=== PATIENT | female | born 1990 | race Caucasian/White ===

== ENCOUNTER 2017-08-03 20:13 | Inpatient (IN) | payer MEDICAID ==
[~2017-08-03] VITALS: Ht 162.6 cm; Wt 93.0 kg
[~2017-08-03 20:13] MED LIST: PREN1TAB79 PO
[2017-08-03 20:48] VITALS: BP 129/70; PULSE 82; RESP 18; Ht 162.6 cm; Wt 93.0 kg
[2017-08-03] MEDS ORDERED: TERBUTALINE 1 MG/ML INJ SC ONE (21:30)
[2017-08-03] MEDS ORDERED: LACTATED RINGER'S 1,000 ML IV ONE (21:30)
[2017-08-03] MEDS: LACTATED RINGER'S 1,000 ML IV* SCH (22:23)
[2017-08-03 22:27] LABS: BASOPHIL # 0.1 10^3/ul (0.0-0.1); BASOPHILS % 0.4 % (0.0-2.0); EOSINOPHILS # 0.1 10^3/ul (0.0-0.5); EOSINOPHILS % 0.5 % (0.0-7.0); HEMATOCRIT 36.7 % (37.0-47.0); HEMOGLOBIN 13.1 g/dl (12.0-16.0); LYMPHOCYTES # 3.8 10^3/ul (0.8-2.9); LYMPHOCYTES % 33.5 % (15.0-51.0); MEAN CORPUSCULAR HEMOGLOBIN 31.3 pg (29.0-33.0); MEAN CORPUSCULAR HGB CONC 35.7 g/dl (32.0-37.0); MEAN CORPUSCULAR VOLUME 87.6 fl (82.0-101.0); MEAN PLATELET VOLUME 12.3 fl (7.4-10.4); MONOCYTE # 0.4 10^3/ul (0.3-0.9); MONOCYTES % 3.8 % (0.0-11.0); NEUTROPHIL # 6.7 10^3/ul (1.6-7.5); NEUTROPHILS % 59.7 % (39.0-77.0); PLATELET COUNT 211 10^3/UL (140-415); RED BLOOD COUNT 4.19 10^6/ul (4.20-5.40); RED CELL DISTRIBUTION WIDTH 13.4 % (11.5-14.5); WHITE BLOOD COUNT 11.2 10^3/ul (4.8-10.8)
[2017-08-03 22:36] LABS: ADD UMIC YES; UR ASCORBIC ACID NEGATIVE (NEGATIVE); UR BACTERIA FEW /HPF (NONE SEEN); UR BILIRUBIN (Dip) NEGATIVE (NEGATIVE); UR BLOOD (Dip) NEGATIVE (NEGATIVE); UR CLARITY CLOUDY (CLEAR); UR COLOR YELLOW (YELLOW); UR GLUCOSE (Dip) 3+ mg/dL (NEGATIVE); UR KETONES (Dip) TRACE mg/dL (NEGATIVE); UR LEUKOCYTE ESTERASE (Dip) 3+ Leu/ul (NEGATIVE); UR MUCUS FEW /HPF (NONE SEEN); UR NITRITE (Dip) NEGATIVE (NEGATIVE); UR RBC 4 /HPF (0-5); UR SPECIFIC GRAVITY (Dip) 1.013 (1.003-1.030); UR SQUAMOUS EPITHELIAL CELL FEW /HPF (FEW); UR TOTAL PROTEIN (Dip) NEGATIVE (NEGATIVE); UR UROBILINOGEN (Dip) NEGATIVE (NEGATIVE)
[2017-08-03] MEDS ORDERED: ACETAMINOPHEN 325 MG TAB PO PRN (23:30)
[2017-08-03] MEDS ORDERED: INSULIN ASPART [NOVOLOG] 3 ML PEN SC ONE (23:30)
[2017-08-03] MEDS ORDERED: CALC600T5 PO (23:47)
[2017-08-03] MEDS ORDERED: MACBID PO (23:47)
[2017-08-03] MEDS ORDERED: FOL8 PO (23:47)
[2017-08-03 23:49] LABS: INR 1.04; PARTIAL THROMBOPLASTIN TIME 22.4 Sec (25.0-35.0); PROTIME 13.6 Sec (12.2-14.2); PT RATIO 1.1
[2017-08-04] MEDS: NITROFURANTOIN (SR) 100 MG CAP PO SCH ×3 (01:14→20:54)
[2017-08-04] MEDS: LACTATED RINGER'S 1,000 ML IV SCH ×3 (01:15→15:00)
--- NOTE | 2017-08-04 02:53 | TRIAGE ---
OB Triage Datetime Report Generated by CPN: 08/04/2017 02:53 Datetime: 08/04/2017 02:00 Labor Evaluation Frequency: X3 Monitor Mode: External Duration (sec)2399: 40-80 Pattern: Normal: <= 5 Contractions in 10 Minutes Heart Rate FHR Baseline Rate: 160 Monitor Mode: External US FHR Baseline Changes: No Baseline Change Variability: Moderate 6-25 bpm Accelerations: 15X15 Datetime: 08/04/2017 01:29 Comments: lost of contact, pt sitting up. Datetime: 08/04/2017 01:00 Maternal Assessment Level of Consciousness: Fully Conscious DTR's/Clonus: No Clonus Headache: Denies Blurred Vision: No Respiratory Effort: Unlabored Breath Sounds, Left: Clear and Equal Breath Sounds, Right: Clear and Equal Nausea/Vomiting: Denies RUQ Epigastric Pain: Denies Facial Edema: None Labor Evaluation Frequency: x 1 Monitor Mode: External Duration (sec)2399: 80 Quality: Mild Pattern: Normal: <= 5 Contractions in 10 Minutes Resting Tone [place]: Relaxed Heart Rate FHR Baseline Rate: 160 Monitor Mode: External US Variability: Moderate 6-25 bpm Accelerations: 15X15 Decelerations: None Category: Category I Pain Assessment Pain Scale: 0 Pain Presence: None/Denies Pain Type: N/A Membrane Status: Intact Datetime: 08/04/2017 00:46 Assessment Type: Admission Assessment Maternal Assessment Level of Consciousness: Fully Conscious DTR's/Clonus: DTRs 2+; No Clonus Headache: Denies Blurred Vision: No Respiratory Effort: Unlabored; Regular Rhythm; Equal Expansion Breath Sounds, Left: Clear and Equal Breath Sounds, Right: Clear and Equal Nausea/Vomiting: Denies RUQ Epigastric Pain: Denies Lower Extremities Edema: None Upper Extremities Edema: None Facial Edema: None Fall Risk Assessment History of Falling: (0) No Secondary Diagnosis: (0) No Ambulatory Aid: (0) Bedrest/Nurse Assist IV Therapy: (20) Yes Gait: (0) Normal/Bedrest/Immobile Mental Status: (0) Oriented to Own Ability Fall Score: 20 Fall Risk Score Definition: No Risk: No action required Comment: Datetime: 08/04/2017 00:25 Stage of : OB Triage Labor Evaluation Frequency: None noted or palpated Monitor Mode: External Resting Tone [place]: Relaxed Heart Rate FHR Baseline Rate: 150 Monitor Mode: External US Variability: Moderate 6-25 bpm Accelerations: 15X15 Decelerations: None Category: Category I Datetime: 08/04/2017 00:00 Stage of : OB Triage Labor Evaluation Frequency: x2 Monitor Mode: External Duration (sec)2399: 50-100 Quality: Mild Pattern: Normal: <= 5 Contractions in 10 Minutes Resting Tone [place]: Relaxed Heart Rate FHR Baseline Rate: 155 Monitor Mode: External US FHR Baseline Changes: No Baseline Change Variability: Moderate 6-25 bpm Accelerations: 15X15 Decelerations: None Category: Category I Datetime: 08/03/2017 23:05 Stage of : OB Triage Datetime: 08/03/2017 23:00 Stage of : OB Triage Labor Evaluation Frequency: x1 Monitor Mode: External Duration (sec)2399: 40 Quality: Mild Pattern: Normal: <= 5 Contractions in 10 Minutes Resting Tone [place]: Relaxed Heart Rate FHR Baseline Rate: 155 Monitor Mode: External US Variability: Moderate 6-25 bpm Accelerations: 15X15 Decelerations: None Category: Category I Datetime: 08/03/2017 22:26 Stage of : OB Triage Vaginal Exam Dilatation (cms): 0.0 Effacement (%): 0 Station: -4 Exam By: SANDOVAL Maradiaga Vaginal Bleeding: None Cervix, Consistency: Moderate Cervix, Position: Posterior Datetime: 08/03/2017 22:00 Stage of : OB Triage Labor Evaluation Frequency: Irregular Monitor Mode: External Duration (sec)2399: 40-80 Quality: Mild Pattern: Normal: <= 5 Contractions in 10 Minutes Resting Tone [place]: Relaxed Heart Rate FHR Baseline Rate: 150 Monitor Mode: External US FHR Baseline Changes: No Baseline Change Variability: Moderate 6-25 bpm Accelerations: 15X15 Decelerations: None Category: Category I Datetime: 08/03/2017 21:00 Stage of : OB Triage Labor Evaluation Frequency: 2-4.5 Monitor Mode: External Duration (sec)2399: 40-80 Quality: Mild Pattern: Normal: <= 5 Contractions in 10 Minutes Resting Tone [place]: Relaxed Heart Rate FHR Baseline Rate: 150 Monitor Mode: External US Variability: Moderate 6-25 bpm Accelerations: 15X15 Decelerations: None Category: Category I Datetime: 08/03/2017 20:56 Stage of : OB Triage Datetime: 08/03/2017 20:46 Time of Arrival: 08/04/2017 01:24 EGA: 34.2 Arrived By: Ambulatory Movement: Present Datetime: 08/03/2017 20:28 Stage of : OB Triage Assessment Type: Triage Maternal Assessment Level of Consciousness: Fully Conscious DTR's/Clonus: DTRs 2+; No Clonus Headache: Denies Blurred Vision: No Respiratory Effort: Unlabored; Regular Rhythm; Equal Expansion Breath Sounds, Left: Clear and Equal Breath Sounds, Right: Clear and Equal Nausea/Vomiting: Denies RUQ Epigastric Pain: Denies Lower Extremities Edema: None Degree: None Upper Extremities Edema: None Degree: None Facial Edema: None Temperature Route: Oral Fall Risk Assessment History of Falling: (0) No Secondary Diagnosis: (0) No Ambulatory Aid: (0) Bedrest/Nurse Assist IV Therapy: (0) No Gait: (0) Normal/Bedrest/Immobile Mental Status: (0) Oriented to Own Ability Fall Score: 0 Fall Risk Score Definition: No Risk: No action required Pain Assessment Pain Scale: 6 Pain Presence: Constant Pain Type: Ache Pain Location: Back Pain Relief Measures: Comfort Measures Datetime: 08/03/2017 20:25 Time of Arrival: 08/03/2017 20:01 Arrived By: Wheelchair Arrived From: Office Chief Complaint: Constant back pain Movement: Present Contractions: Irregular Rupture of Membranes: Denies Vaginal Bleeding: None Vaginal Discharge: Denies Abdominal Trauma: Not Applicable Patient Complaints: Back Pain Additional Patient Complaints: Pt states uc's palpated in clinic _ pt newly diagnosed GDM today. P t states was instructed to change diet. No meds ordered. Time Provider Notified: 08/03/2017 20:56 Provider Notified: Initial Plan: VE, IV hydration, Terbutaline x1
[2017-08-04] MEDS: LACTATED RINGER'S 1,000 ML IV* SCH ×3 (06:13→22:17)
[2017-08-04] MEDS: ACCU-CHEK XX SCH ×4 (08:00→20:03)
[2017-08-04] MEDS: FOLIC ACID 0.4 MG TAB PO SCH (10:08)
[2017-08-04] MEDS: CALCIUM CARBONATE 1.25 GM TAB PO SCH (10:09)
[2017-08-04] MEDS: PRENATAL VITAMIN PO SCH (10:09)
[2017-08-04] MEDS: INSULIN ASPART [NOVOLOG] 3 ML PEN SC SCH ×3 (11:19→20:15)
[2017-08-04] MEDS ORDERED: GLUCAGON 1 MG INJ IM PRN (11:30)
[2017-08-04] MEDS ORDERED: GLUCOSE GEL 15 GRAM TUBE PO PRN ×2 (11:30)
[2017-08-04] MEDS ORDERED: GLUCOSE GEL 15 GRAM TUBE BUCCAL PRN (11:30)
[2017-08-04] MEDS ORDERED: DEXTROSE 50% 50 ML SYRINGE IV PRN ×2 (11:30)
[2017-08-04] MEDS ORDERED: INSULIN ASPART [NOVOLOG] 3 ML PEN SC SCH ×2 (14:00→18:05)
[2017-08-04] MEDS: NIFEdipine 10 MG CAP PO SCH ×2 (15:47→18:18)
[2017-08-04] MEDS ORDERED: NIFEdipine 10 MG CAP PO SCH (18:00)
--- NOTE | 2017-08-04 19:33 | HP ---
Date/Time of Note Date/Time of Note DATE: 08/04/17 TIME: 19:28 OB - History Hx of Present Free Text/Dictation 27-year-old female 2 para 1 at 34+ weeks gestation was admitted because of elevated blood sugars in hospital for sugar control Patient has hemoglobin A1c over 8 in the first visit Had care outside the state Last Menstrual Period: Dec 07, 2016 Estimated Due Date: Sep 13, 2017 : 2 Para: 1 Care: Limited Care Ultrasounds: No ultrasounds Obstetrical Complications: Gestational Diabetes, Other ( contractions) Medical Complications: None Past Family/Social History * Past Medical, Surgical, Family and Obstetric Histories reviewed from chart. OB Admission Exam Vital Signs Vital Signs Vital Signs Date Time Temp Pulse Resp B/P Pulse Ox O2 Delivery O2 Flow Rate FiO2 08/03/17 20:48 98.3 82 18 129/70 Room Air Physical Exam HEENT: WNL Heart: Rhythm Normal Lungs: Clear, Equal Abdomen: WNL Extremities: Normal Reflexes: Normal Cervical Dilatation: None Effacement: 0% Station: -3 Membranes: Intact Heart Rate: 150's Accelerations: Accelerations Present Decelerations: No Decelerations Varibility: Marked Contractions on Admission: < 5 Minutes Apart Date/Time Contractions Began: Denies uterine contractions Frequency of Contractions: Denies uterine contractions Duration: Denies uterine contractions Last 72 hourBlood Glucose Bedside Glucose - 72 Hours Test 08/04/17 03:05 08/04/17 08:12 08/04/17 11:08 08/04/17 15:09 Bedside Glucose 232mg/dL (70-220) H 188mg/dL (70-220) 197mg/dL (70-220) 172mg/dL (70-220) Last 72 hours Lab Results CBC & BMP 08/03/17 21:32 OB Assessment/Plan Reason for admission: labor Other Assessment: 34+ weeks gestation uterine contractions Gestational diabetes [id number] Other plan: Start on magnesium sulfate for treatment of contractions Steroids Insulin is initiated by perinatologist we will adjust the dose in hospital ISIDRO BLAKE MD Aug 04, 2017 19:33
[2017-08-04] MEDS ORDERED: MAGNESIUM SULFATE 4 GM/100 ML 100 ML IVPB ONE (20:00)
[2017-08-04] MEDS ORDERED: BETAMET NA PHOS/AC(6 MG/ML) 5ML INJ IM ONE (20:00)
--- NOTE | 2017-08-04 20:28 | RADRPT ---
PROCEDURE: US OB. CLINICAL INDICATION: Size and dates , diabetes TECHNIQUE: Multiple sonographic images of the pelvis and gravid uterus were obtained. The images were reviewed on a PACS workstation. COMPARISON: No prior studies are available for comparison. FINDINGS: There is a single viable intrauterine gestation. Cardiac activity is present with 154 beats per min telida. There is a vertex presentation. The placenta is anterior. There is no evidence for an abruption or placenta previa. Measurements were made in order to determine age. The results are as follows: BPD =9.0 cm HC =31.8 cm AC =32.2 cm FL =7.1 cm Estimated gestational age of approximately 36 weeks and 1 day based on ultrasound measurements. Clinical age: 34 weeks and 2 days. The estimated date of delivery is 08/31/17, based on ultrasound measurements. The EFW = 2843 g, 90.3%, based on LMP age. RPTAT: AA IMPRESSION: Single viable intrauterine gestation of approximately 36 weeks and 1 day based on ultrasound measur ements. Larger than clinical age by 2 weeks. .Jef Chowdhury MD, MD Date Time Electronically viewed and signed by .Jef Chowdhury MD, on 08/04/2017 20:27 .S/
[2017-08-04] MEDS: MAGNESIUM SULFATE 20 GM/500 ML 500 ML IV SCH (20:59)
[2017-08-04] MEDS ORDERED: INSULIN ISOPHANE (NPH) 10 ML INJ SC SCH (21:00)
[2017-08-05] MEDS: LACTATED RINGER'S 1,000 ML IV* SCH ×3 (05:30→22:24)
[2017-08-05] MEDS: MAGNESIUM SULFATE 20 GM/500 ML 500 ML IV SCH ×2 (06:51→17:16)
[2017-08-05] MEDS ORDERED: INSULIN ASPART [NOVOLOG] 3 ML PEN SC SCH (08:00)
[2017-08-05] MEDS: INSULIN ISOPHANE (NPH) 10 ML INJ SC SCH ×2 (08:22→21:21)
[2017-08-05] MEDS: ACCU-CHEK XX SCH ×4 (08:29→19:52)
[2017-08-05] MEDS: NITROFURANTOIN (SR) 100 MG CAP PO SCH ×2 (08:35→21:17)
[2017-08-05] MEDS: PRENATAL VITAMIN PO SCH (08:35)
[2017-08-05] MEDS: CALCIUM CARBONATE 1.25 GM TAB PO SCH (08:35)
[2017-08-05] MEDS: FOLIC ACID 0.4 MG TAB PO SCH (08:36)
[2017-08-05] MEDS: INSULIN ASPART [NOVOLOG] 3 ML PEN SC SCH ×4 (10:28→20:07)
--- NOTE | 2017-08-05 17:39 | PN ---
Date/Time of Note Date/Time of Note DATE: 08/05/17 TIME: 17:38 OB Subjective Subjective Subjective No more complaint of uterine contractions OB Objective Objective Objective Vital signs are stable in general physical exam is unchanged On electronic monitoring and frequent uterine contractions seen Glucose still elevated Patient under care of perinatologist for sugar control OB Assessment/Plan Reason for admission: labor Other Assessment: Uncontrolled gestational diabetes 34+ weeks gestation Other plan: Continue to monitor blood sugars and adjust insulin dose labor appear under control We will try to DC magnesium sulfate the following day Consider starting patient on p.o. nifedipine next day ISIDRO BLAKE MD Aug 05, 2017 17:39
[2017-08-05] MEDS ORDERED: BETAMET NA PHOS/AC(6 MG/ML) 5ML INJ IM ONE (20:00)
[2017-08-06] MEDS: MAGNESIUM SULFATE 20 GM/500 ML 500 ML IV SCH ×2 (01:41→11:02)
[2017-08-06] MEDS: LACTATED RINGER'S 1,000 ML IV* SCH ×3 (05:30→23:24)
[2017-08-06] MEDS: ACCU-CHEK XX SCH ×4 (07:30→20:05)
[2017-08-06] MEDS: CALCIUM CARBONATE 1.25 GM TAB PO SCH (08:30)
[2017-08-06] MEDS: PRENATAL VITAMIN PO SCH (08:30)
[2017-08-06] MEDS: NITROFURANTOIN (SR) 100 MG CAP PO SCH ×2 (08:30→20:39)
[2017-08-06] MEDS: INSULIN ASPART [NOVOLOG] 3 ML PEN SC SCH ×5 (08:37→20:34)
[2017-08-06] MEDS: INSULIN ISOPHANE (NPH) 10 ML INJ SC SCH ×2 (08:38→20:37)
[2017-08-06] MEDS: FOLIC ACID 0.4 MG TAB PO SCH (08:52)
[2017-08-06] MEDS: NIFEdipine 10 MG CAP PO SCH (20:05)
[2017-08-07] MEDS: NIFEdipine 10 MG CAP PO SCH ×3 (00:19→11:49)
[2017-08-07] MEDS: LACTATED RINGER'S 1,000 ML IV* SCH ×2 (05:30→11:40)
[2017-08-07] MEDS: PRENATAL VITAMIN PO SCH (08:35)
[2017-08-07] MEDS: CALCIUM CARBONATE 1.25 GM TAB PO SCH (08:35)
[2017-08-07] MEDS: FOLIC ACID 0.4 MG TAB PO SCH (08:35)
[2017-08-07] MEDS: NITROFURANTOIN (SR) 100 MG CAP PO SCH (08:35)
[2017-08-07] MEDS: ACCU-CHEK XX SCH ×2 (09:00→11:30)
[2017-08-07] MEDS: INSULIN ISOPHANE (NPH) 10 ML INJ SC SCH (09:23)
[2017-08-07] MEDS: INSULIN ASPART [NOVOLOG] 3 ML PEN SC SCH ×2 (09:25→11:30)
--- NOTE | 2017-08-07 14:11 | PERINOTE ---
Date/Time of Note Date/Time of Note DATE: 08/07/17 TIME: 13:56 Assessment/Recommendations Other Assessments Intrauterine at 34 weeks and 5 days of gestation Gestational diabetes, possibly undiagnosed pre-gestational diabetes, treated with insulin. Blood glucose control is improving, despite an unconventional insulin regimen. however the patient is requiring spot doses of insulin in the afternoon. Recommendations: I have D/Cd the sliding scale insulin and increased morning NPH Would D/C the patient when she knows how to self-inject and to manage her diet. After D/C please refer the patient to perinatology for follow up of gestational diabetes. OB Subjective Free Text/Dictaton Patient is referred for premature uterine contractions and also gestational diabetes out of control. HD# 5 IUP @ 34W5D Complaints/Overnight events Patient reports no further uterine activity Current Medications Current Medications Lactated Ringer's (Lr) 1,000 ml @ 125 mls/hr Q8H IV* Last administered on 11:40; Admin Dose 125 MLS/HR; Start 08/03/17 at 21:30 Diagnostic Test (Pha) (Accu-Chek) 1 ea FBSPP XX Last administered on 11:30; Admin Dose 1 EA; Start 08/04/17 at 06:00 Prenat Multivit/ [place]/Iron/Folic Ac () 1 tab DAILY PO Last administered on 08/07/17 08:35; Admin Dose 1 TAB; Start 08/04/17 at 09:00 Acetaminophen (Tylenol Tab) 650 mg Q4H PRN PO PAIN AND OR ELEVATED TEMP Last administered on 08/04/17 18:17; Admin Dose 650 MG; Start 08/03/17 at 23:30 Folic Acid (Folic Acid) 0.8 mg DAILY PO Last administered on 08/07/17 08:35; Admin Dose 0.8 MG; Start 08/04/17 at 09:00 Calcium Carbonate (Oyster Shell Calcium) 1.25 gm DAILY PO Last administered on 08/07/17 08:35; Admin Dose 1.25 GM; Start 08/04/17 at 09:00 Nitrofurantoin Macrocrystals (Macrobid) 100 mg BID PO Last administered on 08:35; Admin Dose 100 MG; Start 08/03/17 at 23:30 Miscellaneous Information 1 ea NOTE XX ; Start 08/04/17 at 11:30 Glucose (Glutose) 15 gm Q15M PRN PO DECREASED GLUCOSE; Start 08/04/17 at 11:30 Glucose (Glutose) 22.5 gm Q15M PRN PO DECREASED GLUCOSE; Start 08/04/17 at 11: 30 Dextrose (D50w Syringe) 25 ml Q15M PRN IV DECREASED GLUCOSE; Start 08/04/17 at 11:30 Dextrose (D50w Syringe) 50 ml Q15M PRN IV DECREASED GLUCOSE; Start 08/04/17 at 11:30 Glucagon (Glucagen) 1 mg Q15M PRN IM DECREASED GLUCOSE; Start 08/04/17 at 11: 30 Glucose (Glutose) 15 gm Q15M PRN BUCCAL DECREASED GLUCOSE; Start 08/04/17 at 11:30 Insulin Human NPH (Novolin-N) 16 units HS SC Last administered on 08/06/17 20 :37; Admin Dose 16 UNITS; Start 08/05/17 at 21:00 Nifedipine (Procardia) 20 mg Q6 PO Last administered on 08/07/17 11:49; Admin Dose 20 MG; Start 08/06/17 at 20:00 Past Medical History Medical History: no pertinent history Surgical History: no surgical history Para: 1 : 2 LMP (Females 10-50): OB Admission Exam Physical Exam Vitals: Vital Signs Date Time Temp Pulse Resp B/P Pulse Ox O2 Delivery O2 Flow Rate FiO2 08/03/17 20:48 98.3 82 18 129/70 Room Air BP 08/07/17 119/46 Abdomen: WNL Heart Rate: 150's Accelerations: Accelerations Present Decelerations: No Decelerations Varibility: Moderate Contractions on Admission: None Last 72 hourBlood Glucose Bedside Glucose - 72 Hours Test 08/04/17 15:09 08/04/17 20:03 08/05/17 08:10 08/05/17 10:23 Bedside Glucose 172mg/dL (70-220) 142mg/dL (70-220) 154mg/dL (70-220) 172mg/dL (70-220) Test 08/05/17 14:12 08/05/17 17:26 08/05/17 19:52 08/06/17 08:26 Bedside Glucose 127mg/dL (70-220) 158mg/dL (70-220) 142mg/dL (70-220) 137mg/dL (70-220) Test 08/06/17 10:59 08/06/17 16:43 08/06/17 17:34 08/06/17 20:03 Bedside Glucose 113mg/dL (70-220) 171mg/dL (70-220) 153mg/dL (70-220) 176mg/dL (70-220) Test 08/07/17 09:00 08/07/17 11:25 08/07/17 12:49 Bedside Glucose 115mg/dL (70-220) 103mg/dL (70-220) 95mg/dL (70-220) Last 72 hours Lab Results Magnesium Level Test 08/04/17 23:44 08/05/17 05:51 08/05/17 12:02 08/05/17 18:44 Magnesium Level 4.0 H 4.9 H 5.2 *H 4.7 H Test 08/06/17 01:09 08/06/17 05:34 08/06/17 11:57 Magnesium Level 5.1 *H 5.3 *H 5.3 *H Copies To: CC: ISIDRO BLAKE MD, MARIE H MD Aug 07, 2017 14:06
--- NOTE | 2017-08-07 15:53 | PN ---
Date/Time of Note Date/Time of Note DATE: 08/07/17 TIME: 15:52 OB Subjective Subjective Subjective NO major complaints OB Objective Objective Objective vss P/E :normal on efm minimal UC seen blood sugars are improving ISIDRO BLAKE MD Aug 07, 2017 15:53
--- NOTE | 2017-08-07 15:56 | DS ---
Date/Time of Note Date/Time of Note will D/C homr on bed + pelvic rest F/U in [facility]ST DATE: 08/07/17 TIME: 15:54 Obstetrical Discharge Record Final Diagnosis Final Diagnosis: not delivered Other Final Diagnosis GDM controled PTL resolved Complications Tocolytics: Magnesium Sulfate, Other (procardia) Condition on Discharge Physical Assessment Voiding: Yes Bowel Movement: Yes Breast: Soft, non-tender, Filling Fundus: Other () Abdomen and Incision: soft bs + gravid on efm no UC seen Calf Tenderness: No Patient Condition: Good ISIDRO BLAKE MD Aug 07, 2017 15:56
--- NOTE | 2017-08-07 15:59 | PD.PPDC ---
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 Provider Information Physician Information 27-year-old female admitted for labor and diabetes control total resolution of her condition Diagnosis Final Diagnosis: Gestational diabetes and contractions Condition Patient Condition: Good Diet Diet: Special Diet (2000-calorie ADA diet) Activity/Restrictions Activity: Bedrest May Shower Restrictions: No Exercising No Sexual Activity Nothing in the Vagina Follow-up Follow-up with Physician: 2, Day/Days (In clinic for follow-up needs appointment for antepartum testing) Return to clinic for Comment: Refer to OB triage for persistent uterine contractions or significantly elevated blood sugars Patient is already trains for blood sugar check and diet and insulin requirement dosage ISIDRO BLAKE MD Aug 07, 2017 15:59
--- NOTE | 2017-08-07 16:03 | DS ---
Date/Time of Note Date/Time of Note DATE: 08/07/17 TIME: 16:01 Discharge Summary Admission/Discharge Info Admit Date/Time Aug 03, 2017 at 23:05 Discharge Date/Time August 07, 2017 Discharge Diagnosis labor at 34 weeks Newly diagnosed gestational diabetes requiring insulin Consults Perinatologist Procedures None Hx of Present Illness 27-year-old female admitted for management of a blood sugar of contractions and had total resolution of her conditions Hospital Course Uncomplicated Home Meds Reported Medications Calcium Carbonate (CALCIUM) 600 Mg Tablet, 600 MG PO DAILY, TAB 08/03/17 Folic Acid* (Folic Acid*) 0.8 Mg Tablet, 0.8 MG PO DAILY, TAB 08/03/17 Vit W-Ca,Fe,FA(<1 mg) ( Vitamins) 1 Each Tablet, 1 EACH PO DAILY, TAB 11/22/15 Discontinued Reported Medications Nitrofurantoin Monohyd Macrocr (Macrobid) 100 Mg Capsr, 100 MG PO BID, CAP 08/03/17 Follow-up Plan In the clinic in 2 days Needs antepartum testing appointment biweekly Primary Care Provider Not On Staff Doctor Time spent on discharge: > 30 minutes Pending Labs Laboratory Tests Test 08/06/17 16:43 08/06/17 17:34 08/06/17 20:03 08/07/17 09:00 Bedside Glucose 171mg/dL (70-220) 153mg/dL (70-220) 176mg/dL (70-220) 115mg/dL (70-220) Test 08/07/17 11:25 08/07/17 12:49 08/07/17 15:15 Bedside Glucose 103mg/dL (70-220) 95mg/dL (70-220) 126mg/dL (70-220) ISIDRO BLAKE MD Aug 07, 2017 16:03
[2017-08-08] MEDS ORDERED: NPH, HUMAN INSULIN ISOPHANE 3ML VIAL SC SCH (07:30)
== END 2017-08-07 17:30 | disposition home or self-care (01) | DRG 781 ==
LOC: OBT 20:13 → L-D 20:16 → OBG 23:05 → OBT 23:05
PROVIDERS: ADMIT Obstetrics & Gynecology; ATTEND Obstetrics & Gynecology
DX: O24.414 Gestational diabetes mellitus in pregnancy, insulin controlled (principal); O60.03 Preterm labor without delivery, third trimester; Z3A.34 34 weeks gestation of pregnancy
CPT/HCPCS: 36415; 76816; 81001; 82947; 82962; 83735; 85025; 85610; 85730; 86592; 86900; 86901; 96360; 96361; 96372; G0463; J0702; J1815; J3105; J3475; J7120

== ENCOUNTER 2017-08-20 18:21 | Inpatient (IN) | payer MEDICAID ==
[~2017-08-20] VITALS: Ht 162.6 cm; Wt 93.8 kg
[~2017-08-20 18:21] MED LIST changes: +CALC600T5 PO; +FOL8 PO
[2017-08-20] MEDS ORDERED: DEXTROSE 5%-LR 1,000 ML IV SCH (18:48)
[2017-08-20 18:52] VITALS: Ht 162.6 cm; Wt 93.8 kg
[2017-08-20] MEDS ORDERED: NPH SQ ×2 (18:57)
[2017-08-20] MEDS ORDERED: NIFE100P10 MC (18:57)
[2017-08-20] MEDS ORDERED: INSU100V3 IJ ×2 (18:57)
[2017-08-20] MEDS ORDERED: LIDOCAINE 1% (MPF) 30 ML INJ INJ PRN (19:00)
[2017-08-20] MEDS ORDERED: OXYTOCIN 30 UNITS/LR 500 ML IV SCH ×2 (19:00)
[2017-08-20] MEDS ORDERED: MISOPROSTOL 200 MCG TAB PR PRN (19:00)
[2017-08-20] MEDS ORDERED: METHYLERGONOVINE 0.2 MG INJ IM PRN (19:00)
[2017-08-20] MEDS ORDERED: CARBOPROST 250 MCG INJ IM PRN (19:00)
[2017-08-20] MEDS ORDERED: IBUPROFEN 600 MG TAB PO PRN (19:00)
[2017-08-20] MEDS ORDERED: AMPICILLIN 2 GM/NS (PMX) 100 ML IV ONE (19:00)
[2017-08-20] MEDS ORDERED: BUTORPHANOL 2 MG INJ IV PRN (19:00)
[2017-08-20] MEDS ORDERED: MINERAL OIL LIGHT 10 ML VIAL TOP PRN (19:00)
[2017-08-20 19:08] LABS: BASOPHILS % 0.2 % (0.0-2.0); EOSINOPHILS % 0.3 % (0.0-7.0); HEMATOCRIT 39.2 % (37.0-47.0); HEMOGLOBIN 13.9 g/dl (12.0-16.0); LYMPHOCYTES # 4.5 10^3/ul (0.8-2.9); LYMPHOCYTES % 37.2 % (15.0-51.0); MEAN CORPUSCULAR HEMOGLOBIN 31.2 pg (29.0-33.0); MEAN CORPUSCULAR HGB CONC 35.5 g/dl (32.0-37.0); MEAN CORPUSCULAR VOLUME 88.1 fl (82.0-101.0); MEAN PLATELET VOLUME 12.5 fl (7.4-10.4); MONOCYTE # 0.4 10^3/ul (0.3-0.9); MONOCYTES % 3.3 % (0.0-11.0); NEUTROPHIL # 6.9 10^3/ul (1.6-7.5); NEUTROPHILS % 57.3 % (39.0-77.0); PLATELET COUNT 222 10^3/UL (140-415); RED BLOOD COUNT 4.45 10^6/ul (4.20-5.40); RED CELL DISTRIBUTION WIDTH 13.8 % (11.5-14.5)
[2017-08-20] MEDS: LACTATED RINGER'S 1,000 ML IV SCH ×2 (19:09→20:55)
[2017-08-20 19:31] LABS: PARTIAL THROMBOPLASTIN TIME 23.5 Sec (25.0-35.0)
[2017-08-20 19:35] LABS: INR 1.03; PROTIME 13.6 Sec (11.9-14.9); PT RATIO 1.1
--- NOTE | 2017-08-20 19:59 | RADRPT ---
PROCEDURE: US OB. CLINICAL INDICATION: Gestational diabetes TECHNIQUE: Multiple sonographic images of the pelvis were obtained. The images were reviewed on a PACS workstation. COMPARISON: No prior studies are available for comparison. FINDINGS: There is a single viable intrauterine gestation. Cardiac activity is present with 152 beats per min jena. There is a cephalic presentation. Measurements were made in order to determine age. The results are as follows: BPD =9.01 cm HC =33.02 cm AC =38.83 cm FL =7.66 cm. Estimated gestational age of approximately 37 weeks 5 days. The estimated date of delivery is 09/05/2017. The EFW = 4127 g > 97% . The placenta is anterior grade II.. There is no evidence for an abruption . There is a normal amount of amniotic fluid IMPRESSION: Single viable intrauterine gestation of approximately 37 weeks 5 days. The estimated date of delive ry is 09/05/2015 The head circumference to abdominal circumference ratio and femur length to abdominal circumference ratio are slightly normal range. Additionally, the femur length to head circumference ratio is sligh tly above normal range .Mikhail Murcia MD, Date Time Electronically viewed and signed by .Mikhail Murcia MD, on 08/20/2017 19:59 .W/
[2017-08-20] MEDS ORDERED: FENTAnyl 2MCG/ML-ROPIV 0.2% 100 ML ONE (20:47)
[2017-08-20] MEDS ORDERED: ONDANSETRON 4 MG INJ IV PRN (21:30)
[2017-08-20] MEDS ORDERED: DIPHENHYDRAMINE 50 MG INJ IV PRN (21:30)
[2017-08-20] MEDS ORDERED: NALOXONE (0.4 MG/ML) INJ IV PRN (21:30)
[2017-08-20] MEDS ORDERED: FENTAnyl 2MCG/ML-ROPIV 0.2% 100 ML BAG EPI SCH (21:30)
[2017-08-20] MEDS ORDERED: AMPICILLIN 1 GM/NS (PMX) 50 ML IV SCH (23:00)
[2017-08-20] MEDS: OXYTOCIN 30 UNITS/LR 500 ML IV PRN ×2 (23:00→23:30)
--- NOTE | 2017-08-20 23:02 | HP ---
Date/Time of Note Date/Time of Note DATE: 08/20/17 TIME: 22:56 OB - History Hx of Present Free Text/Dictation 27-year-old female 2 para 1 at 36+ weeks gestation admitted complaining of a labor pain started 1100 a.m. on 08/20/2017 Patient is gestational diabetic and is currently using insulin for control of diabetes Chief Complaint: Liver pains Last Menstrual Period: Dec 07, 2016 Estimated Due Date: Sep 13, 2017 : 2 Para: 1 Care: Limited Care Ultrasounds: Abnormal US findings (Possible macrosomia) Abnormal Ultrasound Findings: Possible macrosomia Obstetrical Complications: Gestational Diabetes Medical Complications: None Past Family/Social History * Past Medical, Surgical, Family and Obstetric Histories reviewed from chart. Blood Type: A+ Rubella: unknown RPR/VDRL: Unknown GBS Status: Unknown HBsAG: Unknown OB Admission Exam Vital Signs Vital Signs See admission nursing notes Physical Exam HEENT: WNL Heart: Rhythm Normal Lungs: Clear, Equal Abdomen: WNL Extremities: Normal Reflexes: Normal Cervical Dilatation: 7cm Effacement: 100% Station: -3 Membranes: Intact Heart Rate: 150's Accelerations: Accelerations Present Decelerations: No Decelerations Varibility: Marked Contractions on Admission: < 5 Minutes Apart Date/Time Contractions Began: August 20, 2017 at 1100 a.m. Frequency of Contractions: Every 10-15 minutes Duration: Over 60 seconds Intensity: Mild Last 72 hours Lab Results CBC & BMP 08/20/17 18:50 OB Assessment/Plan Reason for admission: active labor, labor Other Assessment: 36+ weeks gestation Estimation of weight by ultrasound today was almost 4200 g plus minus Gestational diabetes Possible macrosomia Other plan: Because of estimation of weight less than 4500 g patient was allowed to labor Epidural anesthesia was placed per patient request IV antibiotics including ampicillin started for GBS prophylaxis We will follow liver very closely if patient had no progress of labor with proceed with primary section ISIDRO BLAKE MD Aug 20, 2017 23:02
--- NOTE | 2017-08-20 23:03 | QN ---
Documentation Comment After placement of epidural anesthesia patient continued to have adequate contractions with fast progression of cervical dilatation to complete and spontaneous pushing was started Gross estimation of weight was around 43 4400 g plus minus Delivery of the was ensued ISIDRO BLAKE MD Aug 20, 2017 23:03
--- NOTE | 2017-08-20 23:08 | LDN ---
Date/Time of Note Date/Time of Note DATE: 08/20/17 TIME: 23:03 Delivery Summary Normal spontaneous vaginal delivery of a macrosomic over intact perineum Prior to delivering the vertex turtle sign was observed. Patient was immediately taken to [place] position Spontaneous pushing was continued by the patient Shoulder dystocia was encountered Serious care was taken to avoid pulling on the vertex and neck of the Suprapubic pressure was applied by caring naris inside the delivery room and Vázquez maneuver was also performed to deliver the baby intact Complete delivery of the infant was then ensued in less than 1 minute after delivering the vertex Upon delivering the vertex baby was able to move all 4 extremities without difficulty Weeks of Gestation 30 weeks plus Placenta Delivered: Spontaneously, Intact & Complete Meconium: none Episiotomy: No Perineal laceration: 2 Laceration repair: Second-degree perineal laceration was repaired in layers using 2-0 Vicryl and 2-0 chromic stitches Anesthesia type: Epidural Estimated blood loss: 300 Sponge & Needle done & correct: Yes All needle counts correct: Yes Any foreign bodies felt in the: No Problems: Infant Delivery Information Sex Sex: female Apgars 1 Minute: 8 5 Minute: 9 Suctioning Nose & mouth suctioned at mayo: Yes Delee suction performed: No Umbilical Cord Umbilical cord with: 3 Vessels Cord presentations: no nuchal cord Cord Blood was obtained: Yes Mother & Baby Disposition Disposition Mom & Baby to Maternity; Good: Yes (Mother and baby were recovered in good condition) Mom transferred to: Other (Maternity) Baby to NICU: No ISIDRO BLAKE MD Aug 20, 2017 23:08
[2017-08-21 01:15] VITALS: BP 149/71; PULSE 77; RESP 20
[2017-08-21] MEDS: LACTATED RINGER'S 1,000 ML IV* SCH ×2 (01:57→19:46)
[2017-08-21 02:00] VITALS: BP 107/55; PULSE 73; RESP 19
[2017-08-21] MEDS ORDERED: LANOLIN 7 GM TUBE TOP PRN (02:00)
[2017-08-21] MEDS ORDERED: CARBOPROST 250 MCG INJ IM PRN (02:00)
[2017-08-21] MEDS ORDERED: DIBUCAINE 1% 30 GM OINT PR PRN (02:00)
[2017-08-21] MEDS ORDERED: HYDROCODONE/APAP (5/325) TAB PO PRN ×2 (02:00)
[2017-08-21] MEDS ORDERED: MISOPROSTOL 200 MCG TAB PR PRN (02:00)
[2017-08-21] MEDS ORDERED: OXYTOCIN 30 UNITS/LR 500 ML IV PRN (02:00)
[2017-08-21] MEDS ORDERED: ZOLPIDEM 5 MG TAB PO PRN (02:00)
[2017-08-21] MEDS ORDERED: METHYLERGONOVINE 0.2 MG INJ IM PRN (02:00)
[2017-08-21] MEDS: WITCH HAZEL/GLYCERIN PAD PR PRN ×2 (03:18→08:59)
[2017-08-21] MEDS: BENZOCAINE 20% 56 ML SPRAY TOP PRN ×2 (03:19→08:59)
[2017-08-21 03:50] VITALS: BP 119/60; PULSE 72; RESP 18
[2017-08-21] MEDS: IBUPROFEN 600 MG TAB PO SCH ×4 (05:36→23:53)
[2017-08-21] MEDS: CEPHALEXIN 500 MG CAP PO SCH ×4 (05:36→23:53)
[2017-08-21] MEDS: ACCU-CHEK XX SCH ×3 (06:00→20:05)
[2017-08-21] MEDS: metFORMIN (XR) 500 MG TAB PO SCH ×2 (08:44→21:04)
[2017-08-21] MEDS: SENNA/DOCUSATE NA (8.6MG/50MG) TAB PO SCH ×2 (08:45→21:05)
[2017-08-21] MEDS: MAGNESIUM HYDROXIDE 30ML CUP PO SCH ×2 (08:46→21:04)
[2017-08-21 08:50] VITALS: BP 113/53; PULSE 61; RESP 18
[2017-08-21 09:09] LABS: BASOPHILS % 0.2 % (0.0-2.0); HEMATOCRIT 32.4 % (37.0-47.0); HEMOGLOBIN 11.7 g/dl (12.0-16.0); LYMPHOCYTES # 4.5 10^3/ul (0.8-2.9); LYMPHOCYTES % 24.7 % (15.0-51.0); MEAN CORPUSCULAR HEMOGLOBIN 31.4 pg (29.0-33.0); MEAN CORPUSCULAR HGB CONC 36.1 g/dl (32.0-37.0); MEAN CORPUSCULAR VOLUME 86.9 fl (82.0-101.0); MEAN PLATELET VOLUME 12.3 fl (7.4-10.4); MONOCYTE # 0.9 10^3/ul (0.3-0.9); MONOCYTES % 4.7 % (0.0-11.0); NEUTROPHIL # 12.7 10^3/ul (1.6-7.5); NEUTROPHILS % 69.1 % (39.0-77.0); PLATELET COUNT 190 10^3/UL (140-415); RED BLOOD COUNT 3.73 10^6/ul (4.20-5.40); RED CELL DISTRIBUTION WIDTH 13.4 % (11.5-14.5); WHITE BLOOD COUNT 18.3 10^3/ul (4.8-10.8)
--- NOTE | 2017-08-21 15:32 | DS ---
Date/Time of Note Date/Time of Note Home following day DATE: 08/21/17 TIME: 15:31 Obstetrical Discharge Record Final Diagnosis Final Diagnosis: delivered Other Final Diagnosis Status post vaginal delivery of macrosomic Gestational diabetes poorly controlled Vaginal Delivery Obstetrical Delivery: Spontaneous, Laceration, Repaired Complications Labor, Gestational Diabetes Condition on Discharge Physical Assessment Last Vitals: See nurse's note Voiding: Yes Bowel Movement: Yes Breast: Soft, non-tender, Filling Fundus: Firm Abdomen and Incision: Abdomen is soft bowel sounds present Episiotomy: Perineum is healing well Calf Tenderness: No Patient Condition: Good ISIDRO BLAKE MD Aug 21, 2017 15:32
--- NOTE | 2017-08-21 15:34 | PD.PPDC ---
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 Provider Information Physician Information 27-year-old female had vaginal delivery at 36 weeks Baby appeared macrosomic and mother is gestational diabetic and possibly full- blown diabetic Diagnosis Final Diagnosis: Status post vaginal delivery Condition Patient Condition: Good Diet Diet: Special Diet Special Diet: 1800-calorie gestational Activity/Restrictions Activity: Normal Activity May Shower Restrictions: Nothing in the Vagina Return to Work or School: Oct 11, 2017 Follow-up Follow-up with Physician: 4, Week/Weeks (In clinic) Return to clinic for OB Instructions: Breast Tenderness Depression Comment: Continue to take her metformin and continue with a diet Follow-up in clinic in 4 weeks Pelvic rest 4 weeks ISIDRO BLAKE MD Aug 21, 2017 15:34
[2017-08-21] MEDS ORDERED: METF500T3 PO (15:35)
[2017-08-21] MEDS ORDERED: IBUP-1542 PO ×2 (15:35→15:54)
[2017-08-21 15:46] VITALS: BP 117/56; PULSE 55; RESP 14
[2017-08-21 20:00] VITALS: BP 111/58; PULSE 56; RESP 17
[2017-08-22 03:45] VITALS: BP 112/54; PULSE 60; RESP 17
[2017-08-22] MEDS: CEPHALEXIN 500 MG CAP PO SCH ×3 (05:39→17:51)
[2017-08-22] MEDS: IBUPROFEN 600 MG TAB PO SCH ×3 (05:39→17:51)
[2017-08-22] MEDS: ACCU-CHEK XX SCH ×3 (07:30→13:50)
[2017-08-22 08:00] VITALS: BP 116/60; PULSE 56; RESP 19
[2017-08-22] MEDS: MAGNESIUM HYDROXIDE 30ML CUP PO SCH ×2 (09:00→20:59)
[2017-08-22] MEDS ORDERED: DIPHTH/TET/ACEL PERTUSS (ADULT) 0.5 ML VIAL IM* ONE (09:00)
[2017-08-22] MEDS ORDERED: MEASLES,MUMPS,RUBELLA VACCINE INJ SC* ONE (09:00)
[2017-08-22] MEDS: metFORMIN (XR) 500 MG TAB PO SCH ×2 (09:00→20:58)
[2017-08-22] MEDS ORDERED: VARICELLA VACCINE LIVE/PF 1,350 UNIT/0.5 ML ML SC* ONE (09:00)
[2017-08-22] MEDS: SENNA/DOCUSATE NA (8.6MG/50MG) TAB PO SCH ×2 (09:00→20:59)
[2017-08-22 09:17] LABS: BASOPHILS % 0.2 % (0.0-2.0); EOSINOPHILS # 0.1 10^3/ul (0.0-0.5); EOSINOPHILS % 0.6 % (0.0-7.0); HEMATOCRIT 32.4 % (37.0-47.0); HEMOGLOBIN 11.3 g/dl (12.0-16.0); LYMPHOCYTES # 4.4 10^3/ul (0.8-2.9); LYMPHOCYTES % 35.1 % (15.0-51.0); MEAN CORPUSCULAR HGB CONC 34.9 g/dl (32.0-37.0); MEAN CORPUSCULAR VOLUME 88.8 fl (82.0-101.0); MEAN PLATELET VOLUME 12.4 fl (7.4-10.4); MONOCYTE # 0.5 10^3/ul (0.3-0.9); NEUTROPHIL # 7.2 10^3/ul (1.6-7.5); NEUTROPHILS % 57.7 % (39.0-77.0); PLATELET COUNT 199 10^3/UL (140-415); RED BLOOD COUNT 3.65 10^6/ul (4.20-5.40); WHITE BLOOD COUNT 12.5 10^3/ul (4.8-10.8)
[2017-08-22 16:55] VITALS: BP 110/60; PULSE 62; RESP 20
[2017-08-22 20:00] VITALS: BP 120/64; PULSE 70; RESP 20
== END 2017-08-22 21:10 | disposition home or self-care (01) | DRG 775 ==
LOC: OBT 18:21 → L-D 18:22 → OBT 18:50 → L-D 18:50 → PP1 08-21 00:46
PROVIDERS: ADMIT Obstetrics & Gynecology; ATTEND Obstetrics & Gynecology
PROC: 10E0XZZ Delivery of Products of Conception, External Approach (ICD-10-PCS; principal; 2017-08-20)
PROC: 0KQM0ZZ Repair Perineum Muscle, Open Approach (ICD-10-PCS; 2017-08-20)
PROC: 4A1HXCZ Monitoring of Products of Conception, Cardiac Rate, External Approach (ICD-10-PCS; 2017-08-20)
DX: O60.14X0 Preterm labor third trimester with preterm delivery third trimester, not applicable or unspecified (principal); E66.01 Morbid (severe) obesity due to excess calories; O24.424 Gestational diabetes mellitus in childbirth, insulin controlled; O36.63X0 Maternal care for excessive fetal growth, third trimester, not applicable or unspecified; Z37.0 Single live birth; Z3A.36 36 weeks gestation of pregnancy; O66.0 Obstructed labor due to shoulder dystocia; O70.1 Second degree perineal laceration during delivery; O99.214 Obesity complicating childbirth; Z68.35 Body mass index [BMI] 35.0-35.9, adult
CPT/HCPCS: 62319; 76815; 82947; 82962; 85025; 85610; 85730; 86592; 86900; 86901; 87340; 90715; 90716; 99464; G0463; J0290; J2590; J3010; J7120; J7121